=== PATIENT | male | born 1970 | race Caucasian/White ===

== ENCOUNTER 2016-10-17 01:17 | Inpatient (IN) | payer OTHER ==
[~2016-10-17] VITALS: Ht 177.8 cm; Wt 97.2 kg
[2016-10-17] VITALS (7 sets, daily range): BP systolic 117–194; BP diastolic 76–129
[2016-10-17] MEDS ORDERED: KETOROLAC 30 MG/1 ML ONE (02:05)
[2016-10-17] MEDS ORDERED: KETOROLAC 30 MG/1 ML IVPush ONE (02:30)
[2016-10-17] MEDS ORDERED: DOCUSATE 100 MG CAPSULE PO PRN (03:30)
[2016-10-17] MEDS ORDERED: ONDANSETRON 2MG/ML, 2ML IVPush PRN (03:30)
[2016-10-17] MEDS ORDERED: POLYETHYLENE GLYCOL 17 GM PACKET PO PRN (03:30)
[2016-10-17] MEDS ORDERED: ACETAMINOPHEN 325 MG TABLET PO PRN (03:30)
[2016-10-17] MEDS ORDERED: BISACODYL 10 MG SUPP PR PRN (03:30)
[2016-10-17] MEDS: LORazepam 2 MG/ML, 1ML IVPush PRN ×2 (03:32→17:53)
[2016-10-17] MEDS ORDERED: HYDR-883 PO (04:12)
[2016-10-17] MEDS: POTASSIUM CHLORIDE 20 MEQ, MAGNESIUM SULFATE 2 GM, THIAMINE 100 MG, MVI ADULT 10 ML, FO... IV SCH ×4 (04:39→23:36)
[2016-10-17] MEDS: BACLOFEN 10 MG TABLET PO SCH ×2 (09:38→20:17)
[2016-10-17] MEDS ORDERED: DIAZEPAM 2 MG TABLET PO PRN (10:00)
[2016-10-17] MEDS ORDERED: GADOBUTROL 15 MMOL/15 ML PFS ONE (12:53)
[2016-10-17 16:48] LABS: HEMOGLOBIN 13.4 g/dL (13.7-18.0); WHITE BLOOD COUNT 4.3 x10^3/uL (3.4-10)
[2016-10-17 17:04] LABS: BLOOD UREA NITROGEN 12 mg/dL (7-18)
[2016-10-17 17:08] LABS: ASPARTATE AMINO TRANSFERASE 104 U/L (15-37)
[2016-10-17] MEDS: LABETALOL 5MG/ML, 20ML IVPush PRN (17:10)
[2016-10-17] MEDS ORDERED: ENALAPRILAT 1.25 MG/ML, 2ML IV PRN (18:00)
[2016-10-17] MEDS ORDERED: LORazepam 1MG TABLET PO PRN ×4 (18:30)
[2016-10-17] MEDS ORDERED: LORazepam 2 MG/ML, 1ML IV PRN ×5 (18:30)
[2016-10-17] MEDS ORDERED: LORazepam 0.5MG TABLET PO PRN (18:30)
[2016-10-17 19:35] LABS: DAU SCREEN DISCLAIMER
[2016-10-17] MEDS ORDERED: hydrALAzine 20 MG/ML, 1ML IV PRN (20:30)
[2016-10-18 01:49] VITALS: BP 164/114
[2016-10-18] MEDS: LABETALOL 5MG/ML, 20ML IVPush PRN (02:04)
[2016-10-18] MEDS: LORazepam 2 MG/ML, 1ML IVPush PRN (02:04)
[2016-10-18 04:55] VITALS: BP 144/95
[2016-10-18] MEDS: POTASSIUM CHLORIDE 20 MEQ, MAGNESIUM SULFATE 2 GM, THIAMINE 100 MG, MVI ADULT 10 ML, FO... IV SCH (04:57)
[2016-10-18 05:41] LABS: HEMATOCRIT 38.7 % (39.2-51.8); HEMOGLOBIN 13.1 g/dL (13.7-18.0); WHITE BLOOD COUNT 3.3 x10^3/uL (3.4-10)
[2016-10-18 05:43] LABS: BLOOD UREA NITROGEN 9 mg/dL (7-18)
[2016-10-18 05:56] LABS: ASPARTATE AMINO TRANSFERASE 89 U/L (15-37)
[2016-10-18 07:49] VITALS: BP 165/100
[2016-10-18] MEDS: BACLOFEN 10 MG TABLET PO SCH (09:00)
[2016-10-18] MEDS ORDERED: LISINOPRIL 20 MG TABLET PO SCH (09:00)
[2016-10-18] MEDS ORDERED: MULTIVITAMIN 1 TABLET PO SCH (09:00)
[2016-10-18] MEDS ORDERED: FOLIC ACID 1 MG TABLET PO SCH (09:00)
[2016-10-18] MEDS ORDERED: THIAMINE 100MG TABLET PO SCH (09:00)
[2016-10-18 11:16] VITALS: BP 183/125
[2016-10-18 11:31] VITALS: BP 166/108
[2016-10-18] MEDS ORDERED: FOLI-17 PO (11:47)
[2016-10-18] MEDS ORDERED: BACL-19 PO (11:47)
[2016-10-18] MEDS ORDERED: THIA100T6 PO (11:47)
[2016-10-18] MEDS ORDERED: LISI-170 PO (11:47)
[2016-10-18] MEDS ORDERED: MULT1TAB60 PO (11:47)
== END 2016-10-18 12:50 | disposition home or self-care (01) | DRG 101 ==
LOC: ED 02:09 → EDIP 02:10 → 4EST 02:48 → DCLOUNGE 10-18 12:31
DX: G40.509 Epileptic seizures related to external causes, not intractable, without status epilepticus (principal); F10.229 Alcohol dependence with intoxication, unspecified; M54.9 Dorsalgia, unspecified; F17.290 Nicotine dependence, other tobacco product, uncomplicated; D75.89 Other specified diseases of blood and blood-forming organs; G89.29 Other chronic pain; H40.9 Unspecified glaucoma; Z82.3 Family history of stroke; Z79.891 Long term (current) use of opiate analgesic; Z82.49 Family history of ischemic heart disease and other diseases of the circulatory system; Z83.49 Family history of other endocrine, nutritional and metabolic diseases
CPT/HCPCS: 36415; 70553; 80053; 80307; 83735; 84100; 84439; 84443; 85025; 85610; 93005; 95819; 96374; A9585; J1885; J3411; J3475; J3480; J7042; J0360; J2060; J3420

== ENCOUNTER 2017-06-23 01:29 | Emergency (ER) | payer OTHER ==
[~2017-06-23 01:29] MED LIST: BACL-19 PO; FOLI-17 PO; HYDR-883 PO; LISI-170 PO; MULT1TAB60 PO; THIA100T6 PO
[2017-06-23 01:34] VITALS: BP 157/116
[2017-06-23] MEDS ORDERED: LEVETIRACETAM 1,000 MG in SODIUM CHLORIDE 0.9% 100 ML IV ONE (02:00)
[2017-06-23] MEDS ORDERED: DIAZ2TAB PO (02:03)
[2017-06-23] MEDS ORDERED: OXYC-302 PO (02:04)
[2017-06-23 02:22] LABS: BASOPHILS # (AUTO) 0.03 x10^3/uL (0-0.1); BASOPHILS % (AUTO) 1 % (0-1); EOSINOPHILS # (AUTO) 0.06 x10^3/uL (0-0.4); EOSINOPHILS % (AUTO) 2 % (1-7); LYMPHOCYTES # (AUTO) 1.84 x10^3/uL (1-3.4); LYMPHOCYTES % (AUTO) 45 % (22-44); MD NO; MEAN CORPUSCULAR HGB CONC 34.1 g/dL (33.2-36.2); MEAN CORPUSCULAR VOLUME 102.9 fL (81-97); MONOCYTES # (AUTO) 0.31 x10^3/uL (0.2-0.8); MONOCYTES % (AUTO) 7 % (2-9); NEUTROPHILS # (AUTO) 1.89 x10^3/uL (1.8-6.8); NEUTROPHILS % (AUTO) 46 % (42-75); PLATELET COUNT 179 x10^3/uL (130-400); RED BLOOD COUNT 3.75 x10^6/uL (4.38-5.82); RED CELL DISTRIBUTION WIDTH 14.1 % (9.4-14.8)
[2017-06-23 02:34] LABS: ALANINE AMINOTRANSFERASE 69 U/L (12-78); ALBUMIN 4.1 g/dL (3.4-5.0); ANION GAP 10 mmol/L (5-15); CALCIUM 8.8 mg/dL (8.5-10.1); CHLORIDE 111 mmol/L (98-107); CREATININE 0.76 mg/dL (0.7-1.3)
[2017-06-23 02:36] LABS: ALKALINE PHOSPHATASE 105 U/L (45-117); BILIRUBIN,TOTAL 0.4 mg/dL (0.2-1.0); TOTAL PROTEIN 7.8 g/dL (6.4-8.2)
== END 2017-06-23 03:18 | disposition home or self-care (01) ==
LOC: ED 03:12
DX: G40.409 Other generalized epilepsy and epileptic syndromes, not intractable, without status epilepticus (principal); F10.120 Alcohol abuse with intoxication, uncomplicated; Z72.89 Other problems related to lifestyle; Z91.14 Patient's other noncompliance with medication regimen; Z60.9 Problem related to social environment, unspecified
CPT/HCPCS: 36415; 80053; 80307; 85025; 93005; 96365; 99285; J1953

== ENCOUNTER 2017-08-21 11:37 | Inpatient (IN) | payer OTHER ==
[~2017-08-21] VITALS: Ht 193 cm; Wt 92.0 kg
[~2017-08-21 11:37] MED LIST changes: +DIAZ2TAB PO; +OXYC-302 PO
[2017-08-21 12:15] LABS: MEAN CORPUSCULAR HEMOGLOBIN 36.2 pg (27.5-34.5); MEAN CORPUSCULAR HGB CONC 34.7 g/dL (33.2-36.2); MEAN PLATELET VOLUME 9.7 fL (7.4-10.4); PLATELET COUNT 168 x10^3/uL (130-400); RED BLOOD COUNT 3.89 x10^6/uL (4.38-5.82); RED CELL DISTRIBUTION WIDTH 14.5 % (9.4-14.8)
[2017-08-21 12:23] LABS: ANION GAP 12 mmol/L (5-15); CALCIUM 8.7 mg/dL (8.5-10.1); CHLORIDE 96 mmol/L (98-107)
[2017-08-21 12:28] LABS: ALANINE AMINOTRANSFERASE 55 U/L (12-78); ALKALINE PHOSPHATASE 168 U/L (45-117); BILIRUBIN,TOTAL 2.2 mg/dL (0.2-1.0); CREATININE 1.68 mg/dL (0.7-1.3); TOTAL PROTEIN 8.3 g/dL (6.4-8.2)
[2017-08-21 12:48] LABS: INTERNATIONAL NORMALIZED RATIO 1.04 (0.93-1.1); PROTHROMBIN TIME 10.7 Seconds (9.6-11.5)
[2017-08-21 12:52] LABS: MD YES
[2017-08-21 12:57] LABS: TROPONIN I < 0.015 ng/mL (0.000-0.045)
[2017-08-21] MEDS ORDERED: SODIUM CHLORIDE 0.9% 1,000 ML IV ONE (13:00)
[2017-08-21] MEDS ORDERED: PANTOPRAZOLE 80 MG in SODIUM CHLORIDE 0.9% 50 ML IVPB ONE (13:00)
[2017-08-21 13:02] LABS: <PLATELET ESTIMATE> ADEQUATE; <PLT MORPHOLOGY> NORMAL PLT MORPH; BAND#(MANUAL) 3.82 x10^3/uL; BANDS%(MANUAL) 26 % (0-7); MONOS#(MANUAL) 0.88 x10^3/uL (0.3-2.7); MONOS% (MANUAL) 6 % (2-9); SEGS% (MANUAL) 68 % (42-75); TOXIC GRAN 1+
[2017-08-21] MEDS ORDERED: MORPHINE SULFATE 4 MG/ML, 1ML ONE (13:02)
[2017-08-21 13:03] LABS: <RBC MORPHOLOGY> NORMAL
[2017-08-21] MEDS: MORPHINE SULFATE 4 MG/ML, 1ML IVPush PRN ×2 (13:05→15:01)
[2017-08-21] MEDS ORDERED: ACET325T14 PO (13:08)
[2017-08-21] MEDS ORDERED: IBUP200C5 PO (13:08)
[2017-08-21] MEDS ORDERED: NAPR220C2 PO (13:09)
[2017-08-21] MEDS ORDERED: AZITHROMYCIN 500 MG in SODIUM CHLORIDE 0.9% 250 ML IVPB ONE (13:30)
[2017-08-21] MEDS ORDERED: SODIUM CHLORIDE FLUSH 10ML SYR IVF ONE (13:30)
[2017-08-21] MEDS ORDERED: SODIUM CHLORIDE 0.9% 1,000ML IVBOLUS ONE ×2 (13:30→14:00)
[2017-08-21] MEDS ORDERED: CEFTRIAXONE PMX 1GM/50ML 50 ML IVPB ONE (13:30)
[2017-08-21] MEDS: SODIUM CHLORIDE 0.9% 1,000ML IVBOLUS ONE ×2 (13:52→15:03)
[2017-08-21] MEDS ORDERED: CEFTRIAXONE PMX 1GM/50ML 50 ML ONE (13:53)
[2017-08-21 14:25] LABS: CULTURE INDICATED? YES; MICROSCOPIC INDICATED
[2017-08-21] MEDS ORDERED: SODIUM CHLORIDE FLUSH 10ML SYR IVF PRN (15:00)
[2017-08-21] MEDS ORDERED: SODIUM CHLORIDE 0.9% 1,000 ML IV SCH (15:22)
[2017-08-21] MEDS ORDERED: MORPHINE SULFATE 4 MG/ML, 1ML IVPush PRN (15:30)
[2017-08-21] MEDS ORDERED: hydrALAzine 20 MG/ML, 1ML IVPush PRN (15:30)
[2017-08-21] MEDS ORDERED: ACETAMINOPHEN 325 MG TABLET PO PRN (15:30)
[2017-08-21] MEDS ORDERED: TEMAZEPAM 15 MG CAPSULE PO PRN (15:30)
[2017-08-21] MEDS ORDERED: ONDANSETRON 2MG/ML, 2ML IVPush PRN (15:30)
[2017-08-21] MEDS: PANTOPRAZOLE 80 MG in SODIUM CHLORIDE 0.9% 100 ML IV SCH ×2 (17:45→22:21)
[2017-08-21 18:55] VITALS: BP 108/66
[2017-08-21 19:42] VITALS: BP 111/68
[2017-08-21] MEDS: PANTOPROZOLE 40MG TABLET PO SCH (20:05)
[2017-08-21] MEDS: SODIUM CHLORIDE 0.9% 1,000 ML IV SCH (20:07)
[2017-08-22] MEDS: HYDROcodone/APAP 5/325 TABLET PO PRN ×4 (03:41→21:37)
[2017-08-22] MEDS: SODIUM CHLORIDE 0.9% 1,000 ML IV SCH (03:41)
[2017-08-22 04:20] VITALS: BP 128/78
[2017-08-22 06:07] LABS: MEAN CORPUSCULAR HEMOGLOBIN 35.6 pg (27.5-34.5); MEAN CORPUSCULAR HGB CONC 34.5 g/dL (33.2-36.2); MEAN CORPUSCULAR VOLUME 103.2 fL (81-97); MEAN PLATELET VOLUME 9.7 fL (7.4-10.4); PLATELET COUNT 165 x10^3/uL (130-400); RED BLOOD COUNT 3.32 x10^6/uL (4.38-5.82); RED CELL DISTRIBUTION WIDTH 15.4 % (9.4-14.8)
[2017-08-22 06:11] LABS: CHLORIDE 105 mmol/L (98-107)
[2017-08-22 06:18] LABS: ALANINE AMINOTRANSFERASE 37 U/L (12-78); ALBUMIN 2.1 g/dL (3.4-5.0); ALKALINE PHOSPHATASE 141 U/L (45-117); ANION GAP 12 mmol/L (5-15); BILIRUBIN,TOTAL 1.6 mg/dL (0.2-1.0); CALCIUM 7.5 mg/dL (8.5-10.1); CREATININE 0.89 mg/dL (0.7-1.3); TOTAL PROTEIN 6.3 g/dL (6.4-8.2)
[2017-08-22 06:24] LABS: MD YES
[2017-08-22 06:25] LABS: BAND#(MANUAL) 1.11 x10^3/uL; BANDS%(MANUAL) 9 % (0-7)
[2017-08-22 06:26] LABS: LYMPH#(MANUAL) 0.74 x10^3/uL (1-3.4); LYMPHS% (MANUAL) 6 % (22-44); MONOS#(MANUAL) 0.49 x10^3/uL (0.3-2.7); MONOS% (MANUAL) 4 % (2-9); SEG#(MANUAL) 9.96 x10^3/uL (1.8-6.8); SEGS% (MANUAL) 81 % (42-75)
[2017-08-22 06:28] LABS: <PLATELET ESTIMATE> ADEQUATE; <PLT MORPHOLOGY> NORMAL PLT MORPH; ANISOCYTOSIS 1+; TOXIC GRAN 1+
[2017-08-22 08:00] VITALS: BP 133/74
[2017-08-22] MEDS ORDERED: ENOXAPARIN 30 MG/0.3 ML SQ SCH (09:00)
[2017-08-22] MEDS: ENOXAPARIN 40 MG/0.4 ML SQ SCH (09:00)
[2017-08-22] MEDS ORDERED: SODIUM CHLORIDE INHALATION 7%, 4 ML NPPB SCH (09:00)
[2017-08-22] MEDS: PANTOPRAZOLE 80 MG in SODIUM CHLORIDE 0.9% 100 ML IV SCH ×2 (09:00→19:00)
[2017-08-22] MEDS ORDERED: SODIUM CHLORIDE 0.9% IV ONE (09:30)
[2017-08-22] MEDS ORDERED: MAGNESIUM SULFATE IV ONE (09:30)
[2017-08-22] MEDS: POTASSIUM PHOSPHATE 44 MEQ in SODIUM CHLORIDE 0.9% 500 ML IV SCH ×2 (09:36→21:37)
[2017-08-22] MEDS: PANTOPROZOLE 40MG TABLET PO SCH ×2 (09:36→17:00)
[2017-08-22] MEDS: POTASSIUM CHLORIDE 20 MEQ TAB.ER.PRT PO SCH ×2 (09:36→12:08)
[2017-08-22] MEDS ORDERED: MAGNESIUM SULFATE 6 GM in SODIUM CHLORIDE 0.9% 150 ML IV ONE (10:00)
[2017-08-22] MEDS: AZITHROMYCIN 500 MG in SODIUM CHLORIDE 0.9% 250 ML IV SCH (14:18)
[2017-08-22] MEDS: CEFTRIAXONE PMX 2GM/50ML 50 ML IV SCH (15:42)
[2017-08-22 19:21] VITALS: BP 128/74
[2017-08-23 04:00] VITALS: BP 138/77
[2017-08-23] MEDS: HYDROcodone/APAP 5/325 TABLET PO PRN ×5 (04:18→21:29)
[2017-08-23] MEDS: SODIUM CHLORIDE INHALATION 7%, 4 ML NPPB SCH ×2 (04:37→09:00)
[2017-08-23 05:34] LABS: MEAN CORPUSCULAR HEMOGLOBIN 35.2 pg (27.5-34.5); MEAN CORPUSCULAR HGB CONC 33.6 g/dL (33.2-36.2); MEAN CORPUSCULAR VOLUME 104.6 fL (81-97); MEAN PLATELET VOLUME 9.8 fL (7.4-10.4); PLATELET COUNT 196 x10^3/uL (130-400); RED BLOOD COUNT 3.25 x10^6/uL (4.38-5.82); RED CELL DISTRIBUTION WIDTH 15.6 % (9.4-14.8)
[2017-08-23] MEDS: POTASSIUM PHOSPHATE 44 MEQ in SODIUM CHLORIDE 0.9% 500 ML IV SCH (05:43)
[2017-08-23 05:46] LABS: ALBUMIN 1.9 g/dL (3.4-5.0); ANION GAP 11 mmol/L (5-15); CALCIUM 7.8 mg/dL (8.5-10.1); CHLORIDE 106 mmol/L (98-107)
[2017-08-23 05:51] LABS: ALANINE AMINOTRANSFERASE 33 U/L (12-78); ALKALINE PHOSPHATASE 172 U/L (45-117); BILIRUBIN,TOTAL 1.2 mg/dL (0.2-1.0); CREATININE 0.73 mg/dL (0.7-1.3); TOTAL PROTEIN 6.1 g/dL (6.4-8.2)
[2017-08-23 05:55] LABS: MD YES
[2017-08-23 05:57] LABS: <PLATELET ESTIMATE> ADEQUATE; <PLT MORPHOLOGY> NORMAL PLT MORPH; <RBC MORPHOLOGY> NORMAL; BAND#(MANUAL) 3.18 x10^3/uL; BANDS%(MANUAL) 16 % (0-7); LYMPHS% (MANUAL) 4 % (22-44); SEG#(MANUAL) 15.92 x10^3/uL (1.8-6.8); SEGS% (MANUAL) 80 % (42-75)
[2017-08-23 08:07] VITALS: BP 107/72
[2017-08-23] MEDS: PANTOPROZOLE 40MG TABLET PO SCH ×2 (08:53→17:00)
[2017-08-23] MEDS: ENOXAPARIN 40 MG/0.4 ML SQ SCH ×2 (08:54→08:55)
[2017-08-23] MEDS: MAGNESIUM OXIDE 400 MG TABLET PO SCH ×2 (12:26→21:28)
[2017-08-23] MEDS: SODIUM CHLORIDE 0.9% 1,000 ML IV SCH ×2 (12:27→17:30)
[2017-08-23 12:30] VITALS: BP 119/80
[2017-08-23] MEDS: AZITHROMYCIN 500 MG in SODIUM CHLORIDE 0.9% 250 ML IV SCH (12:30)
[2017-08-23] MEDS: CEFTRIAXONE PMX 2GM/50ML 50 ML IV SCH (17:30)
[2017-08-23 21:59] VITALS: BP 120/76
[2017-08-24] MEDS: HYDROcodone/APAP 5/325 TABLET PO PRN ×5 (01:32→22:03)
[2017-08-24] MEDS: SODIUM CHLORIDE 0.9% 1,000 ML IV SCH ×5 (01:32→23:42)
[2017-08-24 01:34] VITALS: BP 130/83
[2017-08-24 06:02] LABS: MEAN CORPUSCULAR HEMOGLOBIN 35.4 pg (27.5-34.5); MEAN CORPUSCULAR HGB CONC 33.8 g/dL (33.2-36.2); MEAN CORPUSCULAR VOLUME 104.8 fL (81-97); MEAN PLATELET VOLUME 9.6 fL (7.4-10.4); PLATELET COUNT 227 x10^3/uL (130-400); RED BLOOD COUNT 3.19 x10^6/uL (4.38-5.82); RED CELL DISTRIBUTION WIDTH 15.9 % (9.4-14.8)
[2017-08-24 06:09] LABS: ANION GAP 8 mmol/L (5-15); CALCIUM 7.7 mg/dL (8.5-10.1); CHLORIDE 107 mmol/L (98-107); CREATININE 0.63 mg/dL (0.7-1.3)
[2017-08-24 07:49] LABS: MD YES
[2017-08-24 07:50] LABS: <PLATELET ESTIMATE> ADEQUATE; <PLT MORPHOLOGY> NORMAL PLT MORPH; <RBC MORPHOLOGY> NORMAL; BAND#(MANUAL) 2.77 x10^3/uL; BANDS%(MANUAL) 16 % (0-7); EOS#(MANUAL) 0.35 x10^3/uL (0.0-0.4); EOS% (MANUAL) 2 % (1-7); LYMPH#(MANUAL) 0.35 x10^3/uL (1-3.4); LYMPHS% (MANUAL) 2 % (22-44); MONOS#(MANUAL) 0.35 x10^3/uL (0.3-2.7); MONOS% (MANUAL) 2 % (2-9); SEG#(MANUAL) 13.49 x10^3/uL (1.8-6.8); SEGS% (MANUAL) 78 % (42-75)
[2017-08-24] MEDS: ENOXAPARIN 40 MG/0.4 ML SQ SCH (09:00)
[2017-08-24] MEDS: SODIUM CHLORIDE INHALATION 7%, 4 ML NPPB SCH (09:00)
[2017-08-24 09:02] VITALS: BP 142/101
[2017-08-24] MEDS: PANTOPROZOLE 40MG TABLET PO SCH ×2 (09:39→16:55)
[2017-08-24] MEDS: MAGNESIUM OXIDE 400 MG TABLET PO SCH ×2 (09:39→16:56)
[2017-08-24 13:21] VITALS: BP 134/84
[2017-08-24] MEDS: POTASSIUM CHLORIDE 20 MEQ TAB.ER.PRT PO SCH ×2 (15:00→15:02)
[2017-08-24] MEDS: AZITHROMYCIN 500 MG in SODIUM CHLORIDE 0.9% 250 ML IV SCH (15:01)
[2017-08-24] MEDS: CEFTRIAXONE PMX 2GM/50ML 50 ML IV SCH (16:55)
[2017-08-24 20:33] VITALS: BP 149/85
[2017-08-25 02:27] VITALS: BP 120/75
[2017-08-25] MEDS: HYDROcodone/APAP 5/325 TABLET PO PRN ×2 (02:34→08:25)
[2017-08-25 05:54] LABS: CHLORIDE 105 mmol/L (98-107)
[2017-08-25 05:56] LABS: MEAN CORPUSCULAR HEMOGLOBIN 35.6 pg (27.5-34.5); MEAN CORPUSCULAR HGB CONC 34.3 g/dL (33.2-36.2); MEAN CORPUSCULAR VOLUME 103.7 fL (81-97); MEAN PLATELET VOLUME 9.3 fL (7.4-10.4); PLATELET COUNT 288 x10^3/uL (130-400); RED CELL DISTRIBUTION WIDTH 15.2 % (9.4-14.8)
[2017-08-25 06:15] LABS: ALANINE AMINOTRANSFERASE 45 U/L (12-78); ALBUMIN 1.8 g/dL (3.4-5.0); ALKALINE PHOSPHATASE 256 U/L (45-117); ANION GAP 10 mmol/L (5-15); BILIRUBIN,TOTAL 1.7 mg/dL (0.2-1.0); CALCIUM 7.8 mg/dL (8.5-10.1); CREATININE 0.66 mg/dL (0.7-1.3); TOTAL PROTEIN 6.4 g/dL (6.4-8.2)
[2017-08-25 06:47] LABS: MD YES
[2017-08-25 07:01] LABS: BAND#(MANUAL) 0.11 x10^3/uL; BANDS%(MANUAL) 1 % (0-7); BASOS#(MANUAL) 0.11 x10^3/uL (0-0.1); BASOS% (MANUAL) 1 % (0-1); LYMPH#(MANUAL) 0.98 x10^3/uL (1-3.4); LYMPHS% (MANUAL) 9 % (22-44); MONOS#(MANUAL) 0.65 x10^3/uL (0.3-2.7); MONOS% (MANUAL) 6 % (2-9); MYELOCYTES# (MANUAL) 0.11 x10^3/uL (0-0); MYELOCYTES% (MANUAL) 1 % (0-0); SEG#(MANUAL) 8.94 x10^3/uL (1.8-6.8); SEGS% (MANUAL) 82 % (42-75)
[2017-08-25 07:02] LABS: <PLATELET ESTIMATE> ADEQUATE; <PLT MORPHOLOGY> NORMAL PLT MORPH; <RBC MORPHOLOGY> NORMAL
[2017-08-25] MEDS: SODIUM CHLORIDE INHALATION 7%, 4 ML NPPB SCH (07:33)
[2017-08-25] MEDS: ENOXAPARIN 40 MG/0.4 ML SQ SCH (07:33)
[2017-08-25 08:03] VITALS: BP 126/75
[2017-08-25] MEDS: MAGNESIUM OXIDE 400 MG TABLET PO SCH (08:25)
[2017-08-25] MEDS: PANTOPROZOLE 40MG TABLET PO SCH (08:25)
[2017-08-25] MEDS: SODIUM CHLORIDE 0.9% 1,000 ML IV SCH (09:40)
[2017-08-25] MEDS ORDERED: AZIT500T PO (14:13)
[2017-08-25] MEDS ORDERED: CEFD300C37 PO (14:13)
== END 2017-08-25 14:35 | disposition home or self-care (01) | DRG 871 ==
LOC: ED 14:10 → EDIP 14:31 → SUATTDRO 14:46 → 3NE 18:29
PROVIDERS: ADMIT Hospitalist; ATTEND Internal Medicine
DX: A41.9 Sepsis, unspecified organism (principal); J96.90 Respiratory failure, unspecified, unspecified whether with hypoxia or hypercapnia; K22.6 Gastro-esophageal laceration-hemorrhage syndrome; K85.20 Alcohol induced acute pancreatitis without necrosis or infection; N17.0 Acute kidney failure with tubular necrosis; R65.21 Severe sepsis with septic shock; J15.9 Unspecified bacterial pneumonia; N39.0 Urinary tract infection, site not specified; E83.42 Hypomagnesemia; E83.39 Other disorders of phosphorus metabolism; E87.6 Hypokalemia; F10.20 Alcohol dependence, uncomplicated; G40.909 Epilepsy, unspecified, not intractable, without status epilepticus; I10 Essential (primary) hypertension; K76.0 Fatty (change of) liver, not elsewhere classified; Z72.0 Tobacco use
CPT/HCPCS: 36415; 71250; 74022; 76700; 80048; 80053; 80307; 81001; 82140; 83605; 83690; 83735; 84100; 84145; 84484; 85025; 85610; 85730; 86480; 86850; 86900; 87015; 87040; 87070; 87086; 87116; 87147; 87205; 87206; 93005; 96361; 96365; 96367; 96375; 96376; J0456; J0696; J1650; J3475; C9113; J7030; J7040; J7050